=== PATIENT | male | born 1995 | race Two or more races ===

== ENCOUNTER 2017-10-07 12:26 | Emergency (ER) | payer SELFPAY ==
[~2017-10-07] VITALS: Ht 175.3 cm; Wt 80.0 kg
[2017-10-07 12:44] VITALS: Ht 175.3 cm; Wt 80.0 kg
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
[2017-10-07] MEDS ORDERED: IBUPROFEN 800 MG TAB PO ONE (14:30)
--- NOTE | 2017-10-07 15:01 | RADRPT ---
PROCEDURE: XR right shoulder. CLINICAL INDICATION: Pain TECHNIQUE: Axillary, Internal and external rotation views of the right shoulder were performed. COMPARISON: None. FINDINGS: There is normal osseous mineralization and alignment. No acute fracture or osseous lesion is identified. There are normal joints without evidence of arthritis or dislocation. The soft tissues are unremarkable. RPTAT: AA IMPRESSION: Unremarkable right shoulder. .Fox Stallings MD, MD Date Time Electronically viewed and signed by .Fox Stallings MD, on 10/07/2017 15:00 .S/
--- NOTE | 2017-10-07 15:03 | RADRPT ---
PROCEDURE: XR Ankle. CLINICAL INDICATION: Left ankle pain TECHNIQUE: 3 views of the left ankle were performed. COMPARISON: None. FINDINGS: There is no evidence of acute fracture. Alignment is normal. Joint spaces are preserved. There is moderate bimalleolar soft tissue swelling, greatest laterally. IMPRESSION: 1. No radiographic evidence of acute osseous abnormality. 2. Moderate bimalleolar soft tissue swelling, greatest laterally. RPTAT: UU .Mckay Beltran MD, MD Date Time Electronically viewed and signed by .Mckay Beltran MD, MD on 10/07/2017 15:03 .K/
[2017-10-07] MEDS ORDERED: NAPR-260 PO (15:11)
[2017-10-07] MEDS ORDERED: ACET500C5 PO (15:11)
[2017-10-07] MEDS ORDERED: NEOM1PAC TP (15:11)
== END 2017-10-07 18:03 | disposition home or self-care (01) ==
LOC: FTE 12:26
DX: M25.511 Pain in right shoulder (principal); M25.572 Pain in left ankle and joints of left foot
CPT/HCPCS: 73610